=== PATIENT | male | born 1975 | race Caucasian/White ===

== ENCOUNTER 2021-10-09 13:48 | Emergency (ER) | payer MEDICAID, SELFPAY ==
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
[2021-10-09 14:13] VITALS: BP 115/76; BP 124/70; PULSE 110; PULSE 120; RESP 12; TEMP 36.6; O2SAT 100; O2SAT 98; BMI 22.8
--- NOTE | 2021-10-09 15:03 | PC.NURSE ---
UN INVENTORIED CLOTHING PLACED IN POD LOCKER 9
[2021-10-09 15:42] LABS: MANUAL DIFF FLAG NO
[2021-10-09 15:44] LABS: Basophils Percent Auto 0.1 % (0-2); Eosinophils Percent Auto 0.1 % (0-4); Hematocrit 40.8 % (42.0-52.0); Hemoglobin 13.5 g/dl (14.0-18.0); Imm Gran Abs Auto 0.06 X10*3/uL (0.00-0.03); Imm Gran Pct Auto 0.4 % (0.0-0.4); Lymphocytes Absolute Auto 1.5 X10*3/uL (1.2-4.9); Lymphocytes Percent Auto 10.1 % (20-40); Mean Corpuscular HGB Conc 33.1 g/dl (31.0-36.0); Mean Corpuscular Hemoglobin 29.4 pg (27.0-33.0); Mean Corpuscular Volume 88.9 fL (80.0-98.0); Mean Platelet Volume 11.6 fL (9.4-12.4); Monocytes Absolute Auto 1.2 X10*3/uL (0.1-1.2); Neutrophils Absolute Auto 11.9 x10*3/uL (2.0-8.3); Neutrophils Percent Auto 81.3 % (45-73); Platelet Count 169 X10*3/uL (160-400); Red Blood Count 4.59 X10*6/uL (4.60-5.80); White Blood Count 14.7 X10*3/uL (4.8-10.8)
[2021-10-09 15:59] LABS: Ethanol < 10 mg/dL
[2021-10-09 16:00] LABS: COVID-19 Test Negative (Negative); IDNOW Serial# 55D5AD1C
[2021-10-09 16:01] LABS: Alanine Aminotransferase 19 U/L (0-40); Albumin Level 4.7 g/dL (3.5-5.0); Alkaline Phosphatase 65 U/L (39-117); Anion Gap 14 (12-20); Aspartate Amino Transferase 33 U/L (5-37); Bilirubin Direct 0.2 mg/dL (0.0-0.5); Bilirubin Total 0.5 mg/dL (0.0-1.0); Blood Urea Nitrogen 19 mg/dL (9-16); Calcium 9.6 mg/dL (8.4-10.2); Carbon Dioxide 29 mmol/L (22-29); Chloride 101 mmol/L (96-108); Creatinine Clr Calc Pharmacy 107.9; Estimated Glomerular Filt Rate > 60; Glucose Random 80 mg/dL (60-115); Potassium 4.3 mmol/L (3.3-5.1); Sodium 140 mmol/L (135-145)
[2021-10-09 16:18] LABS: Amphetamine Screen Urine POSITIVE (Not Detect); Barbiturates, Urine Not Detected (Not Detect); Benzodiazepines Screen Urine Not Detected (Not Detect); Cannabinoid Screen Urine Not Detected (Not Detect); Cocaine Screen Urine POSITIVE (Not Detect); Fentanyl, urine POSITIVE (Not Detect); Opiate Screen Urine POSITIVE (Not Detect); Phencyclidine Screen Urine Not Detected (Not Detect)
--- NOTE | 2021-10-09 17:49 | MHC.RECOVSUP ---
? Reason for consult Recovery Coaching o Current location: ED 19 o Identified substance use concern: Meth / Heroin - Overdose - Seeking ATS (detox) - Support ? Intervention: <del>o</del> <del>ATS</del> <del>bed</del> <del>search</del> <del>started/completed/in</del> <del>process</del> <del>o</del> <del>MAT</del> <del>started</del> <del>or</del> <del>to</del> <del>be</del> <del>started</del> o Community resources provided o Harm reduction discussion ? Plan: <del>o</del> <del>Referral</del> <del>to</del> <del>[facility]</del> <del>o</del> <del>Bed</del> <del>search</del> <del>in</del> <del>progress</del> <del>to</del> o Follow up tomorrow o Patient awaiting crisis evaluation o Patient to follow up with [facility] after discharge ? Additional information: Patient stated that he needs help.. Patient is waiting on a psych eval.. Follow up tomorrow
[2021-10-09 18:17] VITALS: BP 98/52; PULSE 101; RESP 20; TEMP 37.2; O2SAT 99
--- NOTE | 2021-10-09 18:35 | PHA.MEDREC ---
Pharmacy Consult ? Medication Reconciliation Pharmacy has completed the medication reconciliation. Pt stated that he is supposed to be on an antibiotic but wasn't sure what it was, and could not provide a pharmacy for me to call. Only medication history that shows recently is Suboxone from [id number]. Amy Raya, CheryD
--- NOTE | 2021-10-09 19:12 | MHC.CARE ---
Care team and recovery team saw pt for consult and SUDE., Pt is under the influence, identifies Crystal Meth and Heroin. He is seeking detox, but cannot sit still and presents very disorganized. Pt will not be successful doing an intake if placement was secured. Spoke to provider, plan is for pt to sleep it off and clear so that we can better assist him. Pt is seeking detox, recovery team will see pt tomorrow and care team available as needed. Pt is not on a section 12.
[2021-10-09 19:28] VITALS: BP 98/59; PULSE 99; RESP 16; TEMP 37.5; O2SAT 98
[2021-10-09] MEDS: LORazepam 1 MG TABLET 2 MG PO (19:31)
[2021-10-09 20:00] VITALS: RESP 16
[2021-10-09 22:00] VITALS: BP 94/55; PULSE 85; RESP 16; TEMP 37.3; O2SAT 98
--- NOTE | 2021-10-09 22:09 | PC.NURSE ---
Provider (Rashad) notified of BP no new orders at this time
== END 2021-10-09 23:56 | disposition home or self-care (01) ==
PROVIDERS: Nurse Practitioner Family; Emergency Provider Internal Medicine
DX: T40.1X1A Poisoning by heroin, accidental (unintentional), initial encounter (principal); Y92.9 Unspecified place or not applicable; F43.10 Post-traumatic stress disorder, unspecified; F11.19 Opioid abuse with unspecified opioid-induced disorder; F33.1 Major depressive disorder, recurrent, moderate; Z79.899 Other long term (current) drug therapy; Z20.822 Contact with and (suspected) exposure to COVID-19; Z71.51 Drug abuse counseling and surveillance of drug abuser
CPT/HCPCS: 36415; 80048; 80076; 80307; 82077; 85025; 87635; 99284

== ENCOUNTER 2021-10-11 21:36 | Emergency (ER) | payer MEDICAID, SELFPAY ==
--- NOTE | ~2021-10-11 | CT_ITS ---
EXAMINATION: CT HEAD WITHOUT CONTRAST CLINICAL INFORMATION: Head injury COMPARISON: None TECHNIQUE: Contiguous axial imaging was performed from the skull base to vertex without intravenous administration of contrast. This CT examination was performed using dose optimization techniques as appropriate, variously including the following: *Automated exposure control *Adjustment of mA and/or kV according to patient size (this includes techniques or standardized protocols for targeted exams where dose is matched to indication/reason for exam; i.e. extremities or head) *Use of iterative reconstruction technique DLP: 622 mGy-cm FINDINGS: There is no evidence of acute intracranial hemorrhage or territorial infarction. No abnormal mass effect or midline shift is seen. Roper to white matter differentiation is well preserved. No extra-axial fluid collections are identified. The ventricles are normal in size. There is no abnormal attenuation within the brain parenchyma. The osseous structures and soft tissues are normal. The mastoid air cells and visualized portions of the paranasal sinuses are well aerated. CT/CT head/brain wo con IMPRESSION: No acute intracranial pathology.
[2021-10-11 21:38] VITALS: BP 165/102; PULSE 120; O2SAT 100
[2021-10-11 21:40] VITALS: BP 146/93; PULSE 109; RESP 18; TEMP 36.7; O2SAT 99; BMI 22.8
[2021-10-12 03:05] VITALS: BP 109/46; PULSE 83; RESP 16; TEMP 36.2; O2SAT 94
--- NOTE | 2021-10-12 03:09 | PC.NURSE ---
Wants to see recovery coaches in AM.
--- NOTE | 2021-10-12 08:24 | MHC.CARE ---
CARE Team met with Pt who is requesting detox. Adelia RANGEL will order COVID and tox screen .
--- NOTE | 2021-10-12 09:16 | MHC.RECOVSUP ---
Recovery Support note: Patient is a 45 year old [place]ian speaking male who [place] [facility] after an [place]. Patient has expressed interest in going to detox. ATS Bedsearch conducted: [facility]: No beds [facility]: Closed due to COVID [facility]: Closed due to COVID [facility]: Not accepting outside [facility] due to COVID [facility]: No Beds [facility]: No response, left message [facility]: No beds [place]: Closed due to COVID [facility]: No beds [facility]: Left message. [facility]: No beds. Patient on waitlist. [facility]: No beds [facility]: Left message. [place]: Closed due to COVID This senior copywriter awaits follow up from facilities where messages were left.
[2021-10-12 09:21] LABS: COVID-19 Test Negative (Negative); IDNOW Serial# 55D5AD1C
[2021-10-12 09:28] LABS: Amphetamine Screen Urine POSITIVE (Not Detect); Barbiturates, Urine Not Detected (Not Detect); Benzodiazepines Screen Urine Not Detected (Not Detect); Cannabinoid Screen Urine Not Detected (Not Detect); Cocaine Screen Urine POSITIVE (Not Detect); Fentanyl, urine POSITIVE (Not Detect); Opiate Screen Urine POSITIVE (Not Detect); Phencyclidine Screen Urine Not Detected (Not Detect)
--- NOTE | 2021-10-12 11:18 | MHC.RECOVSUP ---
Recovery Support note: Patient completed intake with [facility] and has been accepted for admission. Discussed case with production designer and ED provider. Plan to discharge patient and transport via [employer].
--- NOTE | 2021-10-12 11:50 | ED.OVERDOSE ---
HPI - Overdose General Chief Complaint: Overdose Stated Complaint: OVERDOSE Time Seen by Provider: 10/12/21 09:07 Source: patient Mode of arrival: ambulatory History of Present Illness HPI Narrative: 45-year-old male with a PMH substance abuse presenting to the ED complaining of drug overdose last night s/p using 5 bags of heroin and cocaine. Patient was given 2mg of intranasal Narcan by PD. admits this is his 2nd OD this week, requesting detox. Reports mild headache/abrasions noted to head is suspected from OD last night, patient does not remember all events. Denies EtOH use. Denies CP/ SOB, abdominal pain, nausea/ vomiting. MD complaint: accidental overdose Onset (ago): hour(s) Related Data Home Medications Medication Instructions Recorded Confirmed acetaminophen 325 mg tablet 650 mg PO Q6H PRN 10/09/21 10/09/21 (Tylenol) buprenorphine 8 mg-naloxone 2 mg 0.5 strip SUBLINGUAL DAILY 10/09/21 10/09/21 sublingual film (Suboxone) buprenorphine 8 mg-naloxone 2 mg 1 strip SUBLINGUAL DAILY 10/09/21 10/09/21 sublingual film (Suboxone) ibuprofen 400 mg tablet 400 mg PO Q6H PRN 10/09/21 10/09/21 Allergies Allergy/AdvReac Type Severity Reaction Status Date / Time No Known Allergies Allergy Verified 10/09/21 14:03 Review of Systems Review of Systems: Constitutional: No Fever, No Chills, No Fatigue, No Malaise ENT/Mouth: No Ear Pain, No Nasal Congestion, No sore throat, No Rhinorrhea, No Swallowing Difficulty Eyes: No Eye Pain, No Swelling, No Redness Cardiovascular: No Chest Pain, No SOB, No Palpitations Respiratory: No Cough, No Sputum, No Wheezing, No Smoke Exposure, No Dyspnea Gastrointestinal: No Nausea, No Vomiting, No Diarrhea, No Constipation, No Abdominal pain Genitourinary: No Dysuria, No Flank Pain, No Hesitancy Musculoskeletal: No joint pain, No Myalgias, No Joint Swelling Skin: +abrasions, Skin Lesions, No rash Neuro: No Weakness, No Numbness,+ Headache Psych: No Anxiety/Panic, No Depression, No SI/HI/AH/VH, No Social Issues Yes all other systems are reviewed and are negative PMFSH Past Medical History Attestation statement: The following information was validated with the patient. Social History Social History Advance Directives: No Advance Directives Information Provided: No Physical Exam Vital Signs: Vital Signs: Last Vital Signs Temp 97.1 F 10/12/21 03:05 Pulse 83 10/12/21 03:05 Resp 16 10/12/21 03:05 BP 109/46 L 10/12/21 03:05 Pulse Ox 94 10/12/21 03:05 BMI result Body Mass Index 22.8 Const: General: cooperative, healthy appearing and no acute distress Orientation/consciousness: patient oriented x3 Limitations: no limitations HENMT: Other: + Abrasions noted to forehead, right side of nose and chin Head: Yes normal to inspection, No Pena's sign, No palpable skull fracture and No raccoon eyes Ears: hearing grossly normal bilaterally General nose exam: Normal external nose present Face and sinus: Yes normal facial exam Mouth: Normal oral and palatal mucosa present Throat: Yes posterior oropharynx normal Eyes: General: appearance normal, both eyes and all related structures Pupils: Equal, round and reactive pupils present EOM: EOMs intact bilaterally Neck: Neck: Yes normal visual inspection and Yes no meningeal signs Resp: Effort & Inspection: normal respiratory effort and no respiratory distress Auscultation: clear to auscultation bilaterally, no rales, no rhonchi and no wheezes Cardio: Rate: regular rate Heart sounds: S1 normal heart sound present and S2 normal heart sound present GI: Inspection: Yes normal to inspection Palpation (GI): Soft to palpation, nontender, no guarding and not rigid Skin: Rashes: no rashes Neuro: General: patient oriented x3, gait normal, tone normal, moves all extremities, no meningeal signs, no focal motor deficits and CN's II-XI intact bilaterally Cranial nerves: Yes Equal, round and reactive pupils present Gait exam (Neuro): Normal gait present Motor exam (neuro): 5/5 motor strength present throughout Extrem: General: Yes normal to inspection Course Course Course Narrative: - COVID-19 negative . Tox screen positive for opiates, fentanyl, amphetamines and cocaine >> patient was is accepted to [facility] in [place], will be transferred from our ED MDM - Overdose MDM Narrative Medical decision making narrative: 45-year-old male with a PMH substance abuse presenting to the ED complaining of drug overdose last night s/p using 5 bags of heroin and cocaine. on exam vital signs stable, NAD, nontoxic, A&O x3, abrasions noted to face/ forehead, no focal neuro deficits. Patient will be evaluated by power and recovery supervisor for detox Differential Diagnosis Differential diagnosis: Likely drug overdose Medical Records Attestation: I reviewed the patient's medical records. Lab Data Attestation: I reviewed the patient's lab results. Labs: Lab Results 10/12/21 10/12/21 Range/Units 08:57 09:01 Urine Opiates Screen POSITIVE H (Not Detect) Urine Fentanyl Screen POSITIVE H (Not Detect) Ur Barbiturates Screen Not Detected (Not Detect) Ur Phencyclidine Scrn Not Detected (Not Detect) Ur Amphetamines Screen POSITIVE H (Not Detect) U Benzodiazepines Scrn Not Detected (Not Detect) Urine Cocaine Screen POSITIVE H (Not Detect) U Marijuana (THC) Screen Not Detected (Not Detect) COVID-19 (DAVID) Negative (Negative) COVID-19 Clin Com See Note Discharge Plan Discharge Clinical Impression: Drug overdose Patient Disposition: Xfer Other Transfer Details: [facility] Instructions: Adult Overdose (ED) Additional Instructions: you were accepted to detox at [facility] in [place] avoid alcohol and drug use if you have thoughts of hurting yourself or others please return to the ED Prescriptions: No Action acetaminophen [Tylenol] 325 mg Tablet 650 mg PO Q6H PRN (Reason: Pain) RF: 0 ibuprofen [Motrin] 400 mg Tablet 400 mg PO Q6H PRN (Reason: Pain) RF: 0 buprenorphine-naloxone [Suboxone] 8-2 mg film 1 strip sublingual DAILY RF: 0 buprenorphine-naloxone [Suboxone] 8-2 mg film 0.5 strip sublingual DAILY RF: 0 Referrals: [facility] [Physician] - 2 days
== END 2021-10-12 12:10 | disposition other institution (70) ==
PROVIDERS: Emergency Provider Emergency Medicine
DX: T50.991A Poisoning by other drugs, medicaments and biological substances, accidental (unintentional), initial encounter (principal); F11.10 Opioid abuse, uncomplicated; F14.10 Cocaine abuse, uncomplicated; F19.10 Other psychoactive substance abuse, uncomplicated; S00.81XA Abrasion of other part of head, initial encounter; X58.XXXA Exposure to other specified factors, initial encounter; Y93.9 Activity, unspecified; Y99.9 Unspecified external cause status; Y92.9 Unspecified place or not applicable; Z20.822 Contact with and (suspected) exposure to COVID-19
CPT/HCPCS: 70450; 80307; 87635; 99284